=== PATIENT | male | born 1980 | race Caucasian/White ===

== ENCOUNTER 2016-07-07 16:03 | Emergency (ER) | payer OTHER ==
[~2016-07-07] VITALS: Ht 172.7 cm; Wt 67.3 kg
[2016-07-07 16:07] VITALS: BP 141/102; PULSE 61; RESP 20; O2SAT 99
--- NOTE | 2016-07-07 16:52 | ED.REPORT ---
HPI-Psychiatric Illness Date of Service Jul 07, 2016 ED Provider: Abelardo Perez PA-C otherwise healthy 35-year-old male who presents seeking psychiatric services. Patient states he was recently diagnosed with a mood disorder, placed on lithium and Seroquel. Unfortunately he recently lost his job and insurance and can no longer see his provider. Can no longer get his medications. He has contacted [facility] but feels he would have to wait too long to be seen there. Complains of rapid mood swings, several a day, as well as anxiety, poor sleep, depression, suicidal ideation. He denies a plan for suicidal relation or history of attempts. Denies drug and alcohol use. Denies homicidal ideation as well as auditory or visual hallucinations. He has no physical complaints. Nursing Notes Stated Complaint: MENTAL HEALTH Chief Complaint: Psychiatric Complaint Nursing Notes Reviewed: Yes Allergies: Coded Allergies: No Known Allergies (Unverified , 07/07/16) Scheduled Quetiapine Fumarate (Quetiapine Fumarate) 100 Mg Tablet 100 MG PO HS General Time Seen by MD: 16:39 Chief Complaint Suicidal ideation Risk-Psychiatric Illness Suicide Risk Stratification Suicide Risk Factors - Adult: : Previous attempt RF Statements: Risk factors reviewed Past Medical History Past Medical History Denies Review of Systems Negative unless stated otherwise in history of present illness Physical Exam General: Well appearing, well developed, well nourished, no acute distress. Well groomed and pleasant. Head: Atraumatic, normocephalic. Eyes: No scleral icterus or injection. No discharge. Vision grossly intact. ENT: Voice clear, hearing grossly intact. Respiratory: Regular rate and rhythm. Breath sounds present, clear to auscultation and equal bilaterally. No respiratory distress. No increased work of breathing, speaks in complete sentences. Cardiovascular: Regular rate and rhythm, without murmur, gallop or rub. No pedal edema. Gastrointestinal: Abdomen flat and non-tender without guarding or rebound. Bowel sounds normoactive. Skin: Warm and dry. Neurological: Grossly nonfocal. Psychological: Alert and oriented. Speech appropriate, linear and logical. Mildly anxious appearing. Initial Vital Signs Vital Signs (First) Date Time Temp Pulse Resp B/P Pulse Ox O2 Delivery O2 Flow Rate FiO2 07/07/16 16:07 36.2 61 20 141/102 99 Room Air Initial VS: Vital signs abnormal (elevate blood pressure) Re-Eval/Medical Decision Med Decision/Clinical Course Otherwise healthy 35-year-old male seeks connection with psychiatric services. He was being treated for mood disorder with Seroquel and lithium until he lost his job/insurance/provider. He is been off his lithium for one month. Reports increasing anxiety, variable mood. He cannot be seen at [facility] for approximately one month. He has no physical complaints. He admits suicidal ideation but denies plan or previous attempts. States "I do not want to kill myself." Denies homicidal ideation, hallucinations. Patient met with Maricruz Almonte MSW, who connected him with mental health services and will assist in arranging an appointment with a prescribers. Request that we fill his medications to bridge him through. I discussed this with Dr. whitney. We do not feel comfortable prescribing lithium however a prescription for 30 days of Seroquel 100 mg is provided. Advised mental health follow-up, gave emergency return precautions. Patient understands and agrees with the plan Discharge & Departure Impression: Primary Impression: Acute situational disturbance )( Condition at Discharge: No danger to self, No danger to others, No suicidal ideation, No homicidal ideation Disposition: Home Discharge Condition All VS Reviewed: Yes Condition: Stable Additional Instructions: Evaluation for mental health services in the emergency department. History and physical revealed no medical instability. Says that he had a conversation with Maricruz and arrangements were made with [facility] to be seen. She will also make an attempt to arrange an appointment with a physician. She will contact you with this information. Unfortunately I do not feel comfortable prescribing lithium to because this is a drug with some potentially serious side effects that needs to be followed closely. I will write a 30 day prescription for Seroquel 100 mg taken once a day before bed. Follow-up with [facility] as planned. Return to emergency department for any new or worsening symptoms including thoughts of harming yourself or others. I also note that your blood pressure was elevated during your visit to the emergency department. Please discuss this with your primary care provider. EDSupervising Provider for [facility]: Arash Whitney MD, Seth PA-C Jul 07, 2016 16:52
[2016-07-07] MEDS ORDERED: QUET100T69 PO (19:10)
[2016-07-07 19:23] VITALS: BP 131/93; PULSE 57; RESP 16; O2SAT 99
== END 2016-07-07 19:23 | disposition home or self-care (01) ==
LOC: SED 16:03
DX: F43.0 Acute stress reaction (principal)

== ENCOUNTER 2016-09-03 09:05 | Emergency (ER) | payer OTHER ==
[~2016-09-03] VITALS: Ht 172.7 cm; Wt 63.6 kg
[~2016-09-03 09:05] MED LIST: QUET100T69 PO
[2016-09-03 09:10] VITALS: BP 125/88; PULSE 77; RESP 16; O2SAT 98
--- NOTE | 2016-09-03 09:27 | ED.REPORT ---
HPI-Psychiatric Illness Date of Service Sep 03, 2016 ED Provider: Jah Valdivia MD Patient is a 35 y/o with a history of bipolar mood disorder on lithium presenting to the ED c/o possible anxiety. He states that for some time he has been struggling with bipolar disorder and difficulty sleeping and has been medicated for this. He has also been struggling with vague suicidal ideations that have been worsening with time, panic attacks, and nightmares, though he denies a plan or homicidal ideation. However he recently realized that it may be his anxiety underlying these symptoms, stating that he is "constantly worrying." He was seen by his PCP yesterday without receiving definitive help, and now presents to the ED stating that he "feels lost" and requesting help addressing his symptoms. The pt has not seen a psychiatrist in one year. Nursing Notes Stated Complaint: POSSIBLE ANXIETY Chief Complaint: Psychiatric Complaint Nursing Notes Reviewed: Yes Allergies: Coded Allergies: No Known Allergies (Unverified , 07/07/16) Scheduled Quetiapine Fumarate (Quetiapine Fumarate) 100 Mg Tablet 100 MG PO HS Trazodone (Trazodone) 50 Mg Tablet 50 MG PO HS General Time Seen by MD: 09:24 Chief Complaint Anxious Hx Obtained From: Patient Arrived By: Walk-in Onset Occurred: More than a week ago... Symptom Duration: Since onset Recent Healthcare: Recent doctor visit Similar Sx Previous: Yes Risk-Psychiatric Illness Suicide Risk Stratification Suicide Risk Factors - Adult: No: Prior psych admission RF Statements: Risk factors reviewed Past Medical History Past Medical History bipolar mood disorder on lithium Past Surgical History none reported Smoking History Unknown if Ever Smoker Ambulatory Status Independent Review of Systems Review of Systems Note: nightmares panic attacks Respiratory: Denies: Non-productive cough, Shortness of breath Cardiovascular: Denies: Chest pain GI: Denies: Abdominal pain Skin: Denies Rash Psychiatric: Reports: Anxiety, Insomnia, Suicidal ideation Complete sys rev & neg: except as marked. Physical Exam Initial Vital Signs Vital Signs (First) Date Time Temp Pulse Resp B/P Pulse Ox O2 Delivery O2 Flow Rate FiO2 09/03/16 09:10 36.4 77 16 125/88 98 Room Air Initial VS: Reviewed, Vital signs normal General/Constitutional: Awake, Alert, No acute distress Behavior: Positive: Anxious (slightly) conversant Neurologic: Oriented X3, Speech NL, No motor deficits, No sensory deficits Psychiatric: Affect NL, Mood NL linear thought processes Head / Eyes: Atraumatic, Normocephalic, EOMI ENT: Atraumatic, Airway patent, Mucous membranes moist Respiratory / Chest: Atraumatic, Breath sounds NL, Breath sounds = bilat, No respiratory distress respiration nonlabored Abdomen: Atraumatic, Soft, Non-tender Skin: Atraumatic, Color NL, No rash, Warm, Dry Neck: Atraumatic, Supple, Full range of motion Back: Atraumatic, Full range of motion Upper Extremity / MS: Atraumatic, Full range of motion Lower Extremity / Pelvis / MS: Atraumatic, Full range of motion Interpretation & Diagnostics Lab Results Interpretation Test 09/03/16 13:55 Hold Urine Received (Received) Re-Eval/Medical Decision Med Decision/Clinical Course 35-year-old male history of anxiety depression bipolar on Seroquel and lithium presenting complaining of worsening anxiety and suicidal thoughts without plan or intent. Discussed with patient and he was evaluated by oncology social work and agreed to be safe with no suicidal plan or intent or homicidal ideation. He was discharged home with resources to follow up with therapist in the morning as well as his primary doctor. He may warrant a referral to psychiatry. He was given trazodone to help him with sleep until he can follow up with primary doctor early next week. Return precautions given if any suicidal ideation or homicidal ideation. Re-Evaluation/Progress : Time of Eval: 12:42 Re-Evaluation/Progress Note: Rechecked patient, whose condition has improved. The diagnosis and plan for discharge are discussed. The pt understands and agrees with the plan. All questions are addressed at this time. Consultation : Call Returned at: 11:57 Note: Spoke with oncology social work regarding pt's case. [employer] recommends discharge with follow up. Counseled Regarding: Diagnosis, Lab results, Need for follow-up Discharge & Departure Impression: Primary Impression: Anxiety Additional Impression: Depression Depression Type: unspecified Qualified Code: F32.9 - Major depressive disorder, single episode, unspecified Disposition: Home Discharge Condition All VS Reviewed: Yes Condition: Stable Patient Instructions: Anxiety (ED), Depression (ED) Additional Instructions: Thank you for entrusting us with your care. Follow up with the resources provided by the oncology social work. Return to the emergency department if you start to have any thoughts of hurting yourself or others. Referrals: [facility] Scribe Attestation Portions of this note were transcribed by Carmela Lima & Curt Sanchez. I, Dr. Valdivia personally performed the history, physical exam and medical decision-making; I reviewed and confirmed the accuracy of the information in the transcribed note. Signed by: Jaylon Ibarra, 09/03/2016 and 1420. Jah Valdivia MD Sep 03, 2016 09:27 Carmela Lima Sep 03, 2016 09:39 CURT SANCHEZ Sep 03, 2016 13:52
[2016-09-03 11:46] VITALS: BP 124/84; PULSE 69; RESP 14
[2016-09-03] MEDS ORDERED: TRAZ-115 PO (12:44)
== END 2016-09-03 12:54 | disposition home or self-care (01) ==
LOC: SED 09:05
DX: F41.9 Anxiety disorder, unspecified (principal); F32.9 Major depressive disorder, single episode, unspecified